=== PATIENT | female | born 1985 | race Caucasian/White ===

== ENCOUNTER 2017-09-11 11:49 | Emergency (ER) | payer OTHER ==
[~2017-09-11] VITALS: Ht 157.5 cm; Wt 61.1 kg
[2017-09-11 13:13] VITALS: BP 130/80
== END 2017-09-11 13:14 | disposition home or self-care (01) ==
LOC: EME 11:49
DX: O99.320 Drug use complicating pregnancy, unspecified trimester (principal); F11.20 Opioid dependence, uncomplicated; O99.330 Smoking (tobacco) complicating pregnancy, unspecified trimester; F17.200 Nicotine dependence, unspecified, uncomplicated
CPT/HCPCS: 99281; 99283

== ENCOUNTER 2017-10-05 18:02 | Inpatient (IN) | payer OTHER ==
[~2017-10-05] VITALS: Ht 157.5 cm; Wt 65.0 kg
[2017-10-05 18:26] VITALS: BP 127/80
[2017-10-05 19:30] VITALS: BP 129/83
[2017-10-05] MEDS ORDERED: METHADONE10 MG PO (20:05)
[2017-10-05] MEDS ORDERED: BUSPAR15 MG PO (20:05)
[2017-10-05] MEDS ORDERED: COLACE100 MG PO (20:06)
[2017-10-05] MEDS ORDERED: PRENATAL TABLE1 EAC3 PO (20:07)
[2017-10-05] MEDS ORDERED: ZANTAC150 MG PO (20:09)
[2017-10-05 20:31] VITALS: BP 129/80
[2017-10-05 20:45] LABS: BASOPHIL (%) 0.4 % (0-1); BASOPHIL COUNT 0.1 K/uL (0-0.1); EOSINOPHIL (%) 0.7 % (0-5); EOSINOPHIL COUNT 0.1 K/uL (0-0.3); HEMOGLOBIN 9.7 G/DL (11.9-15.5); IMMATURE GRANULOCYTE (%) 0.8 % (0.0-0.7); LYMPHOCYTE (%) 16.5 % (15-42); LYMPHOCYTE COUNT 2.1 K/uL (1.0-2.8); MCHC 32.3 G/DL (30.0-36.0); MCV 83.6 FL (83-99); MONOCYTE (%) 6.1 % (3-12); MONOCYTE COUNT 0.8 K/uL (0-0.8); NEUTROPHIL (%) 75.5 % (45-76); NEUTROPHIL COUNT 9.4 K/uL (1.8-6.4); PLATELET COUNT 199 K/uL (156-360); RBC DIS.WIDTH-CV 17.8 % (11.8-14.6); RBC DIS.WIDTH-SD 53.4 % (39-53); RED BLOOD COUNT 3.59 M/uL (3.80-5.20); WHITE BLOOD COUNT 12.4 K/uL (4.1-10.2)
[2017-10-05 21:46] VITALS: BP 123/78
[2017-10-05 22:02] VITALS: BP 116/60
[2017-10-05 23:04] VITALS: BP 117/72
[2017-10-05 23:26] LABS: AMPHETAMINE NEGATIVE (500 ng/mL); BARBITURATES NEGATIVE (200 ng/mL); BENZODIAZEPINES NEGATIVE (150 ng/mL); BUPRENORPHINE NEGATIVE (10 ng/mL); COCAINE NEGATIVE (150 ng/mL); METHADONE PRESUMPTIVE POSITIVE (200 ng/mL); METHAMPHETAMINE NEGATIVE (500 ng/mL); OPIATES (MORPHINE) NEGATIVE (100 ng/mL); OXYCODONE NEGATIVE (100 ng/mL); PHENCYCLIDINE NEGATIVE (25 ng/mL); PROPOXYPHENE NEGATIVE (300 ng/mL); THC CANNABINOIDS NEGATIVE (50 ng/mL); TRICYCLIC ANTIDEPRESSANTS NEGATIVE (300 ng/mL)
[2017-10-06] VITALS (26 sets, daily range): BP systolic 95–151; BP diastolic 50–86
[2017-10-06 10:47] LABS: GROUP B STREP NEGATIVE (NEGATIVE)
[2017-10-07 06:10] LABS: BASOPHIL (%) 0.4 % (0-1); EOSINOPHIL (%) 1.3 % (0-5); EOSINOPHIL COUNT 0.1 K/uL (0-0.3); HEMATOCRIT 32.9 % (36.0-46.0); HEMOGLOBIN 10.5 G/DL (11.9-15.5); IMMATURE GRANULOCYTE (%) 0.2 % (0.0-0.7); LYMPHOCYTE (%) 19.3 % (15-42); LYMPHOCYTE COUNT 1.6 K/uL (1.0-2.8); MCHC 31.9 G/DL (30.0-36.0); MCV 84.6 FL (83-99); MONOCYTE (%) 5.9 % (3-12); MONOCYTE COUNT 0.5 K/uL (0-0.8); NEUTROPHIL (%) 72.9 % (45-76); NEUTROPHIL COUNT 6.2 K/uL (1.8-6.4); PLATELET COUNT 150 K/uL (156-360); RBC DIS.WIDTH-CV 18.4 % (11.8-14.6); RBC DIS.WIDTH-SD 54.6 % (39-53); RED BLOOD COUNT 3.89 M/uL (3.80-5.20); WHITE BLOOD COUNT 8.5 K/uL (4.1-10.2)
[2017-10-07 08:00] VITALS: BP 119/70
[2017-10-08 07:14] VITALS: BP 123/74
[2017-10-08] MEDS ORDERED: IBUPROFEN800 MG PO (12:16)
== END 2017-10-08 13:41 | disposition home or self-care (01) | DRG 775 ==
LOC: LDRP-OP 18:02 → 2WEST 18:03 → LDRP-OP 10-15 16:36
PROVIDERS: Advanced Practice Midwife
PROC: 3E033VJ Introduction of Other Hormone into Peripheral Vein, Percutaneous Approach (ICD-10-PCS; principal; 2017-10-06)
PROC: 10E0XZZ Delivery of Products of Conception, External Approach (ICD-10-PCS; principal; 2017-10-06)
PROC: 3E0R3BZ Introduction of Anesthetic Agent into Spinal Canal, Percutaneous Approach (ICD-10-PCS; principal; 2017-10-06)
PROC: 00HU33Z Insertion of Infusion Device into Spinal Canal, Percutaneous Approach (ICD-10-PCS; principal; 2017-10-06)
DX: O36.5930 Maternal care for other known or suspected poor fetal growth, third trimester, not applicable or unspecified (principal); O99.324 Drug use complicating childbirth; O99.344 Other mental disorders complicating childbirth; O99.334 Smoking (tobacco) complicating childbirth; O76 Abnormality in fetal heart rate and rhythm complicating labor and delivery; F41.9 Anxiety disorder, unspecified; F11.10 Opioid abuse, uncomplicated; O99.52 Diseases of the respiratory system complicating childbirth; J45.909 Unspecified asthma, uncomplicated; F17.200 Nicotine dependence, unspecified, uncomplicated; Z3A.38 38 weeks gestation of pregnancy; Z37.0 Single live birth
CPT/HCPCS: 85025; 87653; C1755; G0378; J7120